=== PATIENT | male | born 1985 | race African-American/Black ===

== ENCOUNTER → 2019-02-04 | Outpatient (CLI) | payer OTHER ==
[~2019-02-04] MED LIST: CETI10TA22 PO; DICL100G18 TP; DICY10CA3 PO; METH-38 PO; OMEP20TA63 PO
--- NOTE | 2019-02-04 14:03 | PAIN ---
DATE OF SERVICE: 02/04/2019 INITIAL CONSULTATION FOR PAIN CLINIC CHIEF COMPLAINT: Low back and right lower extremity pain. HISTORY OF PRESENT ILLNESS: This is a 34-year-old male who presents with history of pain in the low back, right lower extremity for about 7 months, increasing, not as a result of any specific injury or action he is aware of, but he was at the gym working out, doing some core workouts and felt a pop at a point on his abdomen and at the same time pain in the back that later began going to his leg when he was playing some softball later that day. The patient reports he did have some loss of control of his bladder just that day, but that has resolved. The patient reports the pain is now in the low back, posterior gluteus, posterior thigh, posterior calf into the foot and all of the toes with numbness, tingling, it is sharp and shooting in the back, stabbing and throbbing in the leg with numbness in the foot, intermittent in intensity, but always present. The patient reports it is a burning pain as well and has some abdominal pain that is burning also. The patient reports he has had physical therapy, also doing exercise currently. He has tried Flexeril without significant improvement. The therapies and exercise helped him slightly. The patient reports it does not awaken him from sleep at night and does not have any bowel or bladder ____ currently, but did the day this happened. The patient reports it does affect his ability to walk, however, fairly significantly. The patient did have an MRI scan of the lumbar spine, which the report is not available at time of this dictation but he was told and report from his referring physician shows a bulging L5-S1 and degenerative disk changes. PAST MEDICAL HISTORY: Significant for only the aforementioned recent pain and seasonal sinus allergies but no previous surgeries. CURRENT MEDICATIONS: Include Voltaren gel, Robaxin, dicyclomine, Zyrtec and Prilosec. ALLERGIES: THE PATIENT IS ALLERGIC TO ASPIRIN AND GRISEOFULVIN. FAMILY HISTORY: Significant for no major medical problems or conditions he is aware of. SOCIAL HISTORY: The patient drinks alcohol about 1 drink a month. Does not smoke. Denies any illegal, illicit or recreational drugs. He is , lives with his spouse, lives locally in [place], [place], is [employer]. REVIEW OF SYSTEMS: The patient's review of systems is positive for those items mentioned in history of present illness. All systems reviewed and otherwise negative. It is complete, full and well documented on the patient's chart. PHYSICAL EXAMINATION: VITAL SIGNS: The patient's blood pressure is 151/86, pulse 73, respirations 18, temperature 97.4 degrees Fahrenheit, height is 5 feet 10 inches, weight is 227 pounds. GENERAL: The patient is awake, alert, oriented, appropriate, very pleasant demeanor. HEENT: Head shows normocephalic, atraumatic. Extraocular movements are intact and symmetrical. Oral cavity: Mucous membranes moist and pink. Dentition is intact. NECK: Shows anterior throat supple without palpable lymphadenopathy noted. Swallow reflex symmetrical. CHEST: Shows normal on inspection. Breath sounds are clear to auscultation bilaterally. HEART: Shows S1, S2 clear. No murmurs auscultated. ABDOMEN: Soft, nontender, nondistended. Some slight tenderness in the right rib margin, but not in the abdomen itself just on the anterior lateral aspect. No masses are palpated. No hernias are palpated. BACK: Shows spine grossly in the midline. Normal appearing thoracic kyphosis and lumbar lordotic curvature. Lumbar paraspinous muscle shows symmetrical on inspection, on palpation shows some moderate tenderness diffusely, but only diffusely without radiation. The patient's back shows good rotational motion both laterally greater than 10 degrees right and left as well as extension greater than 10 degrees, forward flexion 45 degrees without significant pain reported. No tenderness over the spinous processes, sacrum or sacroiliac regions. EXTREMITIES: The patient's lower extremities show deep tendon reflexes 2+ in the patellar, 1+ tendo-calcaneus tendons. Motor exam is approximately 4 on a scale of 5 on the right, 5/5 on the left. Lower extremities are warm and dry to touch, equal in color and appearance. The patient's straight leg raise noted to be negative bilaterally. Gaenslen's and Abhishek's maneuvers are negative bilaterally as well. Peripheral pulses are 1+. No peripheral edema is noted bilaterally. The patient is able to stand on his toes without difficulty or loss of balance, walks with normal appearing gait for short distance in the office today, not using any assistive devices such as canes or walkers to ambulate. SKIN: Shows warm and dry, good turgor. No edema. No sores, rashes or bruising throughout. IMPRESSION: This is a 34-year-old male with: 1. Approximate 7-month history of increasing pain, low back, right lower extremity in a radicular fashion. 2. MRI scan as reported. 3. Seasonal allergies. PLAN: Options were discussed with the patient including conservative medical managements, physical therapies and interventional techniques. He would like to pursue interventional techniques. We discussed lumbar epidural steroid injection using description as well as anatomical models to describe the procedure. The patient will wait for preauthorization and we will have him return for lumbar epidural steroid injection at that time. ENRICO STAHL MD DR: ZOIE/nts JOB#: [id number] / [id number]
== END | disposition home or self-care (01) ==
LOC: PNCL 08:18
PROVIDERS: ATTEND Anesthesiology
DX: M54.5 Low back pain (principal); M79.604 Pain in right leg; R20.0 Anesthesia of skin; R20.2 Paresthesia of skin; R10.9 Unspecified abdominal pain; M51.37 Other intervertebral disc degeneration, lumbosacral region; Z88.6 Allergy status to analgesic agent
CPT/HCPCS: G0463

== ENCOUNTER → 2019-02-20 | Outpatient (CLI) | payer OTHER ==
[~2019-02-20] MED LIST changes: +IOHEXOL 180 MG/ML 10 ML VIAL. ONE; +methylPREDNISolone ACETATE 40 MG/ML VIAL. ONE; +methylPREDNISolone ACETATE 80 MG/ML VIAL. ONE
--- NOTE | 2019-02-20 19:30 | PAIN ---
DATE OF SERVICE: 02/20/2019 PROGRESS NOTE FOR PAIN CLINIC DIAGNOSIS: Lumbar radiculopathy with lumbar degenerative disk disease. HISTORY OF PRESENT ILLNESS: The patient is a 34-year-old male who returns for followup status post initial evaluation and preauthorization for lumbar epidural steroid injection. The patient has obtained that now and would like to proceed. We did try Medrol Dosepak, with that the patient reports about a 50% improvement, while he was taking that, in the low back and right lower extremity pain. The patient reports no new motor or sensory deficits, no new bowel or bladder incontinence. The patient rates his pain as a 10 on a scale of 10 at its worst in the past week, 10 on average, 8 at its least and is 8 today. The patient reports no new motor or sensory deficits, worse with walking, standing, changing positions, better with sitting or lying down, does not awaken him from sleep at night. PHYSICAL EXAMINATION: VITAL SIGNS: The patient's blood pressure is 154/91, pulse 76, respirations are 18, temperature of 97.6 degrees Fahrenheit, height is 5 feet 10 inches, weight is 233 pounds. GENERAL: The patient is awake, alert, oriented, appropriate, very pleasant demeanor. HEENT: Head shows normocephalic, atraumatic. Extraocular movements are intact and symmetrical. Oral cavity: Mucous membranes moist and pink. Dentition is intact. NECK: Shows anterior throat supple without palpable lymphadenopathy noted. Swallow reflex symmetrical. CHEST: Shows normal on inspection. Breath sounds are clear bilaterally. HEART: Shows S1, S2 clear. No murmurs auscultated. ABDOMEN: Soft, nontender, nondistended. BACK: Shows spine grossly in the midline. Normal appearing thoracic kyphosis and lumbar lordotic curvature. Lumbar paraspinous muscle shows symmetrical on inspection with some mild tenderness in the low lumbar distribution on the right more than left, but with good rotational motion both laterally as well as extension and flexion without difficulty. EXTREMITIES: Lower extremities show deep tendon reflexes 2+ in the patellar, 1+ tendo-calcaneus tendons. Motor exam is approximately 4 on a scale of 5 on the right, 5/5 on the left. Peripheral pulses are 1+ posterior tibia. No peripheral edema is noted bilaterally. Options were discussed with the patient. The patient's old chart was reviewed as his current medication regimen updated. Current review of systems updated in today as well. We will proceed with a lumbar epidural steroid injection today with fluoroscopic guidance. Risks were again discussed including, but not limited to bleeding, infection, possibility of epidural hematoma and subsequent neurological compromise, dural puncture, headaches, spinal cord and/or nerve damage, side effects of steroid medication and poor results regarding pain control. The patient understands and wished to proceed. The patient will return to clinic in approximately 2 weeks for followup. He was counseled on return appointment, activity level and side effects to be aware of. DIAGNOSIS: Lumbar radiculopathy with lumbar degenerative disk disease. PROCEDURE: Lumbar epidural steroid injection, translaminar approach at L5-S1 level using C-arm fluoroscopic guidance under sterile prep and drape using local anesthetic. MEDICATION INJECTED: A total of 120 mg of Depo-Medrol plus 100 mL of preservative-free normal saline and 2 mL of contrast. CONDITION AT DISCHARGE: Stable. The patient tolerated the procedure well, had no complications. ENRICO STAHL MD DR: ZOIE/malu JOB#: [id number] / [id number]
== END ==
LOC: PNCL 13:53
PROVIDERS: ATTEND Anesthesiology
DX: M51.16 Intervertebral disc disorders with radiculopathy, lumbar region (principal)
CPT/HCPCS: 62323; J1030; J1040; Q9965

== ENCOUNTER → 2019-08-08 | Outpatient (CLI) | payer OTHER ==
[~2019-08-08] MED LIST changes: -CETI10TA22 PO; +CETI10TA24 PO; -IOHEXOL 180 MG/ML 10 ML VIAL. ONE; -methylPREDNISolone ACETATE 40 MG/ML VIAL. ONE; -methylPREDNISolone ACETATE 80 MG/ML VIAL. ONE
--- NOTE | 2019-08-08 11:08 | PAIN ---
DATE OF SERVICE: 08/08/2019 PROGRESS NOTE FOR PAIN CLINIC DIAGNOSES: Lumbar radiculopathy with lumbar degenerative disk disease. HISTORY OF PRESENT ILLNESS: The patient is a 34-year-old male who returns for followup status post lumbar epidural steroid injection x 1 on 02/20/2019. The patient did very well with about 90% improvement in the pain in his low back and right leg. The patient reports he has increased his activities with greater ease and comfort, working out, running, doing all of his daily activities, household activities, work activities, sleeping better at night. The patient reports the pain is returning now over the past 3-4 weeks in the low back and right lower extremity, posterior gluteus, posterior thigh, posterior calf, worse with walking, standing and running. The patient reports it is not going as far down the left leg, but it is starting to become much more noticeable. The patient reports no new motor or sensory deficits, no new bowel or bladder incontinence. Rates his pain at 8-9 on a scale of 10 at its worst, 6 on average, 1 at its least and is a 6 today. The patient reports no other changes. PHYSICAL EXAMINATION: VITAL SIGNS: The patient's blood pressure is 144/91, pulse 67, respirations 16, temperature 98.8 degrees Fahrenheit, height is 5 feet 10 inches and weight is 219 pounds. GENERAL: The patient is awake, alert, oriented, appropriate, very pleasant demeanor. HEENT: Head shows normocephalic, atraumatic. Extraocular movements are intact and symmetrical. Oral cavity: Mucous membranes are moist and pink. Dentition is intact. NECK: Shows anterior throat supple without palpable lymphadenopathy noted. Swallow reflex symmetrical. CHEST: Shows normal on inspection. Breath sounds are clear bilaterally. HEART: Shows S1, S2 clear. No murmurs auscultated. ABDOMEN: Soft, nontender, nondistended. No palpable organomegaly is noted. No rebound or guarding demonstrated. BACK: Shows spine grossly in the midline. Normal-appearing thoracic kyphosis and lumbar lordotic curvature. Lumbar paraspinous muscle shows symmetrical on inspection, on palpation shows some moderate tenderness diffusely bilaterally, but only diffusely without significant radiation. The patient has good rotational motion of lumbar spine, both laterally as well as extension and flexion without difficulty. EXTREMITIES: Lower extremities show deep tendon reflexes 2+ in the patellar, 1+ tendo-calcaneus tendons. Motor exam is approximately 5/5 with dorsiflexion, extension, quadriceps and hamstring flexion symmetrical. Peripheral pulses are 1+ posterior tibia. No peripheral edema is noted. Options were discussed with the patient. The patient's old chart was reviewed as his current medication regimen updated. Current review of systems updated today as well. We will hope to proceed with a preauthorization for additional lumbar epidural steroid injection. The patient did very well with the first injection, still has pain in the radicular pattern at L5-S1 dermatomal distribution on the right. The patient was given a Medrol Dosepak in the meantime with instructions, side effects to be aware of discussed with the medication. The patient will follow up in approximately 1 week. We will plan on lumbar epidural steroid injection at L5-S1 level at that time. ENRICO STAHL MD DR: ZOIE/malu JOB#: [id number] / [id number]
== END ==
LOC: PNCL 09:30
PROVIDERS: ATTEND Anesthesiology
DX: M51.16 Intervertebral disc disorders with radiculopathy, lumbar region (principal)
CPT/HCPCS: G0463